=== PATIENT | female | born 1960 | race Caucasian/White ===

== ENCOUNTER 2018-05-22 11:26 | Emergency (ER) | payer BC ==
[~2018-05-22] VITALS: Ht 162.6 cm; Wt 77.0 kg
[2018-05-22 12:36] LABS: BASOPHILS % (AUTO) 0.4 % (0-1); EOSINOPHILS # (AUTO) 0.1 X10'3 (0-0.9); HEMOGLOBIN 12.4 g/dl (12.0-16.0); LYMPHOCYTES # (AUTO) 1.3 X10'3 (1.1-4.8); LYMPHOCYTES % (AUTO) 20.9 % (21-51); MEAN CORPUSCULAR HEMOGLOBIN 30.5 PG (27.0-31.0); MEAN CORPUSCULAR HGB CONC 33.6 g/dL (33.0-36.5); MEAN CORPUSCULAR VOLUME 90.8 FL (78-98); MEAN PLATELET VOLUME 7.6 FL (7.4-10.4); MONOCYTES # (AUTO) 0.8 X10'3 (0-0.9); MONOCYTES % (AUTO) 12.7 % (2-12); NEUTROPHILS # (AUTO) 4.1 X10'3 (1.8-7.7); PLATELET COUNT 257 X10'3 (140-440); RED BLOOD COUNT 4.07 X10'6 (4.20-5.60); RED CELL DISTRIBUTION WIDTH 12.4 % (11.5-14.5); WHITE BLOOD COUNT 6.3 X10'3 (4.5-11.0)
[2018-05-22 12:48] LABS: INR 1.1 INR; PARTIAL THROMBOPLASTIN TIME 29 SECONDS (22-32); PROTHROMBIN TIME 10.7 SECONDS (9.0-12.0)
[2018-05-22 12:54] LABS: ALANINE AMINOTRANSFERASE 79 U/L (12-78); ALBUMIN 3.7 G/DL (3.4-5.0); ALKALINE PHOSPHATASE 87 IU/L (46-116); ANION GAP 10 (8-16); ASPARTATE AMINO TRANSFERASE 34 U/L (10-37); BILIRUBIN,TOTAL 0.6 MG/DL (0.1-1.0); BLOOD UREA NITROGEN 14 MG/DL (7-18); BUN/CREATININE RATIO 20.6 (6.6-38.0); CALCIUM 9.6 MG/DL (8.5-10.1); CHLORIDE 104 MMOL/L (99-107); CREATININE 0.68 MG/DL (0.40-0.90); GLUCOSE 97 MG/DL (70-104); SODIUM 141 MMOL/L (135-145); TOTAL CARBON DIOXIDE 27.1 MMOL/L (24-32); TOTAL PROTEIN 7.4 G/DL (6.4-8.2); eGFR 90 ML/MIN
--- NOTE | 2018-05-22 13:41 | NUR ---
DR PADILLA IS [employer]; AFIB DX 2008: MOSTLY IN NSR SINCE WITH EPISODES OF AFIB: ON: FLECAINIDE INCREASED TO 150 MG FROM 100 BID (4DAYS AGO) DILTIAZEM 120 MG STARTED 4 DAYS AGO ELIQUIS 5 MG BID STARTED 4 DAYS AGO WAS ON ASA LISINOPRIL 30 MG DAILY
[2018-05-22] MEDS ORDERED: normal saline 1000ML IV soln IVB ONE (13:50)
[2018-05-22] MEDS ORDERED: diltiazem 5mg/ml 5ml inj. IV ONE (14:05)
[2018-05-22] MEDS ORDERED: DIGO250T PO (15:48)
[2018-05-22 16:40] VITALS: BP 124/82
== END 2018-05-22 16:43 | disposition home or self-care (01) ==
LOC: ER 11:28
DX: I48.91 Unspecified atrial fibrillation (principal); I10 Essential (primary) hypertension; M25.50 Pain in unspecified joint; M54.2 Cervicalgia; M54.9 Dorsalgia, unspecified; Z79.899 Other long term (current) drug therapy
CPT/HCPCS: 36415; 71045; 80053; 84484; 85025; 85610; 85730; 93005; 96374; 99284; J7030; J3490

== ENCOUNTER 2018-06-22 09:48 | Outpatient (CLI) | payer BC ==
[~2018-06-22 09:48] MED LIST: DIGO250T PO
== END 2018-06-22 23:59 | disposition home or self-care (01) ==
LOC: LAB 09:48
PROVIDERS: ATTEND Nuclear Medicine
DX: E05.90 Thyrotoxicosis, unspecified without thyrotoxic crisis or storm (principal); I10 Essential (primary) hypertension; Z88.0 Allergy status to penicillin
CPT/HCPCS: 36415; 84439; 84443; 84480